=== PATIENT | female | born 1985 | race Caucasian/White ===

== ENCOUNTER 2024-01-04 08:29 | Inpatient (IN) | payer OTHER ==
[2024-01-04] MEDS: ALBUTEROL SO4 2.5/IPRATROPIUM 0.5 INH SOL 3 ML VIAL.NEB. NEB SCH (09:30)
[2024-01-04] MEDS ORDERED: ALBUTEROL SO4 2.5/IPRATROPIUM 0.5 INH SOL 3 ML VIAL.NEB. NEB ONE (09:30)
[2024-01-04] MEDS ORDERED: MAGNESIUM 1GM/D5W - 1 GM/100 ML IVPB IVPB ONE (09:47)
[2024-01-04] MEDS ORDERED: methylPREDNISolone NA SUCC 125 MG/2 ML VIAL ONE (09:47)
[2024-01-04 09:50] LABS: VENOUS BASE EXCESS -1.5 mmol/L (-2-2); VENOUS PCO2 43.6 mmHg (38-52); VENOUS PH 7.36 (7.310-7.410)
[2024-01-04] MEDS: MAGNESIUM 1GM/D5W - 1 GM/100 ML IVPB IVPB ONE (10:02)
[2024-01-04] MEDS: methylPREDNISolone NA SUCC 125 MG/2 ML VIAL IVPUSH ONE (10:02)
[2024-01-04 10:10] LABS: BASO % 1.2 % (0-2.0); EOS % 5.8 % (0-4.5); HEMATOCRIT 36.8 % (32.4-45.2); LYMPH % 32.9 % (8-40); MCH 26.5 pg (25.7-33.7); MCHC 32.6 g/dl (32.0-36.0); MEAN CELL VOLUME 81.4 fl (80-96); MEAN PLT VOLUME 7.4 fl (7.5-11.1); MONO % 9.1 % (3.8-10.2); PLATELET COUNT 433 10^3/uL (134-434); RBC 4.52 M/mm3 (3.60-5.2); RDW 16.2 % (11.6-15.6); WHITE BLOOD COUNT 7.5 K/mm3 (4.0-10.0)
[2024-01-04 10:13] LABS: INR 0.98 (0.83-1.09); PROTHROMBIN TIME (PATIENT) 11.4 SEC (9.7-13.0)
[2024-01-04 10:26] LABS: POTASSIUM 4.2 mmol/L (3.5-5.1)
[2024-01-04 10:29] LABS: CALCIUM 8.5 mg/dL (8.5-10.1)
[2024-01-04 10:30] LABS: ALBUMIN 3.1 g/dl (3.4-5.0); MAGNESIUM 2.2 mg/dL (1.8-2.4)
[2024-01-04 10:34] LABS: CREATININE 0.6 mg/dL (0.55-1.3); TOT PROT 6.6 g/dl (6.4-8.2)
[2024-01-04 10:35] LABS: BILIRUBIN,TOTAL 0.3 mg/dL (0.2-1)
[2024-01-04] MEDS ORDERED: ASPIRIN 81 MG CHEWABLE TABLETS ONE (11:07)
[2024-01-04] MEDS: ASPIRIN 81 MG CHEWABLE TABLETS PO ONE (11:15)
[2024-01-04 11:39] LABS: N-TERMINAL BNP 55.6 pg/ml (5-125)
[2024-01-04] MEDS: ALBUTEROL SO4 2.5/IPRATROPIUM 0.5 INH SOL 3 ML VIAL.NEB. NEB PRN (15:40)
[2024-01-04 15:52] VITALS: BMI 37.4
[2024-01-04] MEDS: ASPIRIN COATED 81 MG TABLET.EC PO SCH (16:57)
[2024-01-04] MEDS ORDERED: AZITHROMYCIN IVPB 500 MG in DEXTROSE 5%-WATER - 250 ML IVPB ONE (19:20)
[2024-01-04] MEDS ORDERED: AZITHROMYCIN IVPB 500 MG/250 ML BAG IVPB ONE (19:30)
[2024-01-04] MEDS: CEFTRIAXONE 1 GM in DEXTROSE 5%-WATER - 50 ML IVPB SCH (21:27)
[2024-01-04] MEDS: PANTOPRAZOLE 40 MG TABLET PO SCH (21:30)
[2024-01-04] MEDS: AZITHROMYCIN IVPB 500 MG/250 ML BAG IVPB ONE (22:00)
[2024-01-05] MEDS: methylPREDNISolone NA SUCC 40 MG/1 ML VIAL IVPUSH SCH (01:56)
[2024-01-05 07:46] LABS: HEMATOCRIT 37.8 % (32.4-45.2); HEMOGLOBIN 12.4 GM/dL (10.7-15.3); MCH 26.4 pg (25.7-33.7); MCHC 32.7 g/dl (32.0-36.0); MEAN CELL VOLUME 80.8 fl (80-96); MEAN PLT VOLUME 8.1 fl (7.5-11.1); PLATELET COUNT 454 10^3/uL (134-434); RBC 4.68 M/mm3 (3.60-5.2); RDW 16.4 % (11.6-15.6); WHITE BLOOD COUNT 15.8 K/mm3 (4.0-10.0)
[2024-01-05 08:02] LABS: POTASSIUM 4.6 mmol/L (3.5-5.1)
[2024-01-05 08:09] LABS: ALBUMIN 3.1 g/dl (3.4-5.0); BLOOD UREA NITROGEN 12.1 mg/dL (7-18)
[2024-01-05 08:12] LABS: BILIRUBIN,TOTAL 0.6 mg/dL (0.2-1); CREATININE 0.6 mg/dL (0.55-1.3)
[2024-01-05 09:23] LABS: ANISOCYTOSIS 3+; MACROCYTOSIS 0
[2024-01-05] MEDS: ENOXAPARIN NA (PORCINE) 40 MG/0.4 ML DISP.SYRIN SQ SCH (09:56)
[2024-01-05] MEDS: AZITHROMYCIN IVPB 250 MG in DEXTROSE 5%-WATER - 250 ML IVPB SCH (09:56)
[2024-01-05] MEDS: MONTELUKAST NA 10 MG TABLET PO SCH (21:38)
[2024-01-05] MEDS: BUDESONIDE/FORMETEROL FUMARATE 160/4.5 mcg INHALER IH SCH (21:38)
[2024-01-06 07:28] LABS: BASO % 0.7 % (0-2.0); HEMATOCRIT 38.9 % (32.4-45.2); HEMOGLOBIN 12.4 GM/dL (10.7-15.3); LYMPH % 10.7 % (8-40); MCH 26.2 pg (25.7-33.7); MCHC 31.9 g/dl (32.0-36.0); MEAN CELL VOLUME 82.2 fl (80-96); MEAN PLT VOLUME 7.7 fl (7.5-11.1); MONO % 3.5 % (3.8-10.2); NEUT % 85.1 % (42.8-82.8); PLATELET COUNT 453 10^3/uL (134-434); RBC 4.73 M/mm3 (3.60-5.2); RDW 16.3 % (11.6-15.6); WHITE BLOOD COUNT 15.9 K/mm3 (4.0-10.0)
[2024-01-06 07:53] LABS: POTASSIUM 4.6 mmol/L (3.5-5.1)
[2024-01-06 08:10] LABS: BLOOD UREA NITROGEN 14.5 mg/dL (7-18)
[2024-01-06 08:13] LABS: CREATININE 0.6 mg/dL (0.55-1.3)
[2024-01-06 08:15] LABS: BILIRUBIN,TOTAL 0.4 mg/dL (0.2-1); TOT PROT 6.8 g/dl (6.4-8.2)
[2024-01-06] MEDS: amLODIPine BESYLATE 10 MG TABLET (FP) PO SCH (17:08)
[2024-01-06] MEDS: methylPREDNISolone NA SUCC 40 MG/1 ML VIAL IVPUSH SCH (21:27)
[2024-01-07] MEDS: ATORVASTATIN CA 80 MG TABLET (FP) PO ONE (12:45)
[2024-01-07 15:06] VITALS: RESP 20
[2024-01-07 18:21] VITALS: BP 115/63; PULSE 105; TEMP 98.4
[2024-01-08] MEDS ORDERED: predniSONE 20 MG TABLET (UD) PO SCH (10:00)
[2024-01-08] MEDS ORDERED: ATORVASTATIN CA 80 MG TABLET (FP) PO SCH (22:00)
== END 2024-01-07 18:53 | disposition home or self-care (01) | DRG 141 ==
LOC: JER 08:29 → JERBED 12:52 → J4W 13:48 → OBSVTOIN 19:26
PROVIDERS: ADMIT Internal Medicine; ATTEND Internal Medicine
DX: J45.901 Unspecified asthma with (acute) exacerbation (principal); I24.89 Other forms of acute ischemic heart disease; F14.10 Cocaine abuse, uncomplicated; R07.89 Other chest pain; I10 Essential (primary) hypertension; G47.33 Obstructive sleep apnea (adult) (pediatric); R11.0 Nausea; R79.89 Other specified abnormal findings of blood chemistry; E66.9 Obesity, unspecified; Z68.37 Body mass index [BMI] 37.0-37.9, adult
CPT/HCPCS: 0241U-QW; 36415; 71045-TC-FY; 80053; 80061; 82803; 83036; 83735; 83880; 84443; 84484; 84702; 85025; 85379; 85610; 85730; 86850; 86900; 86901; 93005; 93010; 93306-TC; 94010; 99285-25; G0378